=== PATIENT | female | born 1990 | race Caucasian/White ===

== ENCOUNTER 2017-04-16 13:41 | Inpatient (IN) | payer BC ==
[~2017-04-16] VITALS: Ht 165.1 cm; Wt 68.3 kg
[~2017-04-16 13:41] MED LIST: Motrin PO; Percocet 5/325,Endoc PO
[2017-04-16 14:19] LABS: MCH 28.7 PG (29.0-34.0); MCHC 32.1 G/DL (30.0-36.0); MCV 89.4 FL (83-99); MEAN PLAT.VOLUME 10.2 uM^3 (9.5-12.4); PLATELET COUNT 329 K/uL (156-360); RBC DIS.WIDTH-CV 12.6 % (11.8-14.6); RBC DIS.WIDTH-SD 41.5 % (39-53); WHITE BLOOD COUNT 6.9 K/uL (4.1-10.2)
[2017-04-16 14:29] LABS: CHLORIDE 104 mEq/L (99-109); POTASSIUM 4.3 mEq/L (3.7-5.4); SODIUM 140 mEq/L (136-147)
[2017-04-16 14:31] LABS: GLUCOSE 101 mg/dL (70-99)
[2017-04-16 14:32] LABS: ANION GAP 10 MEQ/L (2-14)
[2017-04-16 14:35] LABS: GFR ESTIMATE (CALCULATED) > 59 mL/min/
[2017-04-16 14:36] LABS: UREA NITROGEN (BUN) 10 mg/dL (9-23)
[2017-04-16 14:43] LABS: QUANTITATIVE HCG < 4.0 MIU/ML
[2017-04-16] MEDS ORDERED: TRI-SPRINTEC1 EACH PO (15:09)
[2017-04-16] MEDS ORDERED: PEN-VEE K,VEET500 MG PO (15:10)
[2017-04-16 17:35] LABS: TROP-I INTERPRETATION NEGATIVE; TROPONIN-I < 0.01 ng/mL (0.0-0.30)
[2017-04-16 18:30] VITALS: BP 146/80
[2017-04-16 19:25] VITALS: BP 131/86
[2017-04-16 22:14] LABS: TROP-I INTERPRETATION NEGATIVE; TROPONIN-I < 0.01 ng/mL (0.0-0.30)
[2017-04-16 23:48] VITALS: BP 131/75
[2017-04-17 04:00] VITALS: BP 103/56
[2017-04-17 04:15] LABS: TROP-I INTERPRETATION NEGATIVE; TROPONIN-I < 0.01 ng/mL (0.0-0.30)
[2017-04-17 07:55] VITALS: BP 115/67
[2017-04-17 11:49] LABS: LYME DISEASE SEROLOGY SCREEN NEGATIVE (NEGATIVE)
[2017-04-17 12:18] VITALS: BP 118/71
[2017-04-17] MEDS ORDERED: PREDNISONE10 MG PO (15:55)
[2017-04-17 15:58] VITALS: BP 121/74
[2017-04-21 14:33] LABS: ANTITHROMBIN III ACTIVITY+ 99 (80-120); DRVVT Mixing Study Interp Not Indicated (()); PROTEIN C FUNCTIONAL ACTIVITY+ 135 % (70-180); PTT-LA 36 sec (<=40); Protein S, Free 99 % normal (50-147); dRVVT Screen 38 sec (<=45)
== END 2017-04-17 16:33 | disposition home or self-care (01) | DRG 74 ==
LOC: EME 13:41 → 5SOUTH 15:16 → EDOF 15:16 → 5SOUTH 18:06
PROVIDERS: Internal Medicine; Specialist
DX: G51.0 Bell's palsy (principal); F17.210 Nicotine dependence, cigarettes, uncomplicated; R53.1 Weakness; R20.2 Paresthesia of skin; R47.81 Slurred speech; H53.8 Other visual disturbances; R29.810 Facial weakness
CPT/HCPCS: 70450; 70544; 70551; 71020; 72141; 80048; 81240 90; 83090 90; 84484; 84702; 85027; 85240 90; 85300 90; 85303 90; 85305 90; 85306 90; 85613 90; 85651; 85730 90; 86146 90; 86147 90; 86618; 93005; 93880; 99281; 99285; J1650; J7042; J7512